=== PATIENT | male | born 1955 | race Two or more races ===

== ENCOUNTER 2018-07-07 07:32 | Outpatient (CLI) | payer OTHER | END 2018-07-07 07:43 | disposition home or self-care (01) | LOC: TOM 07:32 | DX: R91.8 Other nonspecific abnormal finding of lung field (principal) ==

== ENCOUNTER 2021-01-08 08:33 | Outpatient (CLI) | payer OTHER | END 2021-01-08 08:46 | disposition home or self-care (01) | LOC: TOM 08:33 | PROVIDERS: ATTEND Specialist | DX: R07.89 Other chest pain (principal); J45.998 Other asthma ==

== ENCOUNTER 2022-04-15 13:37 | Outpatient (CLI) | payer OTHER | END 2022-04-15 13:47 | disposition home or self-care (01) | LOC: MRI 13:37 | PROVIDERS: ATTEND Internal Medicine Cardiovascular Disease | DX: M51.26 Other intervertebral disc displacement, lumbar region (principal) | CPT/HCPCS: 72148 ==

== ENCOUNTER 2023-04-16 08:23 | Outpatient (CLI) | payer OTHER | END 2023-04-16 08:32 | disposition home or self-care (01) | LOC: MRI 08:23 | PROVIDERS: ATTEND Internal Medicine Cardiovascular Disease | DX: I63.9 Cerebral infarction, unspecified (principal) | CPT/HCPCS: 70553 ==